=== PATIENT | female | born 1985 | race Caucasian/White ===

== ENCOUNTER 2023-03-18 12:59 | Emergency (ER) | payer BC ==
[2023-03-18] VITALS (10 sets, daily range): BP systolic 89–128; BP diastolic 54–75
[~2023-03-18] VITALS: Ht 170.2 cm; Wt 90.0 kg
[~2023-03-18 12:59] MED LIST: AMOXICILLIN/CL875 MG PO; AMOXICILLIN500 MG PO; ELIMITE5 % EX; HYDROXYZ HCL25 MG PO; MEDDOSEPAK PO; ORTHO CYCLEN PO; ORTHO TRI-CY OR; PROVENTIL HFA IN; ULTRAVATE0.051 EX; VENTOLIN HFA IN
[2023-03-18 14:47] LABS: URINE BILIRUBIN - DIPSTICK Negative (NEGATIVE); URINE BLOOD DIPSTICK Trace-intact (NEGATIVE); URINE GLUCOSE - DIPSTICK Negative (NEGATIVE); URINE KETONE Trace mg/dL (NEGATIVE); URINE LEUK ESTERASE Negative (NEGATIVE); URINE NITRITE - DIPSTICK Negative (Negative); URINE PH 5.5 (4.5-8.0); URINE PROTEIN - DIPSTICK Negative (NEG-TRACE); URINE SPECIFIC GRAVITY >=1.030; URINE UROBILINOGEN - DIPSTICK 0.2 E.U./dL (0.2)
[2023-03-18 14:48] LABS: URINE COLOR Yellow
[2023-03-18] MEDS ORDERED: LORTAB 5/3255 MG PO (15:18)
[2023-03-18] MEDS ORDERED: CYCLOBENZAPRINE10 MG PO (15:18)
[2023-03-18] MEDS ORDERED: MEDDOSEPAK PO (15:18)
[2023-03-18] MEDS ORDERED: NAPROXEN500 MG PO (15:18)
== END 2023-03-18 15:34 | disposition home or self-care (01) | DRG 563 ==
LOC: ED 12:59
PROVIDERS: Nurse Practitioner
DX: S39.012A Strain of muscle, fascia and tendon of lower back, initial encounter (principal); S83.92XA Sprain of unspecified site of left knee, initial encounter; W10.9XXA Fall (on) (from) unspecified stairs and steps, initial encounter; Y92.009 Unspecified place in unspecified non-institutional (private) residence as the place of occurrence of the external cause; X58.XXXA Exposure to other specified factors, initial encounter

== ENCOUNTER 2024-04-13 19:54 | Emergency (ER) | payer BC ==
[~2024-04-13] VITALS: Ht 175.3 cm; Wt 83.0 kg
[~2024-04-13 19:54] MED LIST changes: +CYCLOBENZAPRINE10 MG PO; +LORTAB 5/3255 MG PO; +NAPROXEN500 MG PO
[2024-04-13] MEDS ORDERED: ADDERALL10 MG PO (20:22)
[2024-04-13] MEDS ORDERED: oxyCODONE 10MG/APAP 325 MG 1 COMBO TAB PO ONE (20:30)
[2024-04-13] MEDS ORDERED: CLINDAMYCIN HCL 150 MG CAP PO ONE (20:30)
[2024-04-13] MEDS ORDERED: LIDOCAINE VISCOUS 2% 15 ML UDC PO ONE (20:30)
[2024-04-13] MEDS ORDERED: PERCOCET 10/31 COMBO PO (21:27)
[2024-04-13] MEDS ORDERED: CLINDAMYCIN300 M1 PO (21:27)
[2024-04-13 21:58] VITALS: BP 149/89
== END 2024-04-13 21:58 | disposition home or self-care (01) | DRG 159 ==
LOC: ED 19:54
PROC: 0C953ZZ Drainage of Upper Gingiva, Percutaneous Approach (ICD-10-PCS; principal; 2024-04-13)
DX: K05.219 Aggressive periodontitis, localized, unspecified severity (principal); J45.909 Unspecified asthma, uncomplicated